=== PATIENT | male | born 1965 | race Caucasian/White ===

== ENCOUNTER 2024-06-27 18:57 | Emergency (ER) | payer BC, SELFPAY ==
--- NOTE | ~2024-06-27 | XR_ITS ---
EXAMINATION: XR HAND, LEFT CLINICAL INFORMATION: Left pinky fracture/dislocation. COMPARISON: None available. TECHNIQUE: PA, lateral, and oblique views of the left hand. FINDINGS: Ulnar and dorsal dislocation of the fifth middle phalanx with respect to the proximal phalanx with an osseous fragment along the ventral aspect of the proximal interphalangeal joint on the lateral view, suspicious for underlying avulsion fracture. There is surrounding soft tissue swelling. 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 Mild multifocal degenerative osteoarthritis of the distal interphalangeal joints. XR/XR hand LT 2V IMPRESSION: Ulnar and dorsal dislocation of the fifth middle phalanx with respect to the proximal phalanx with an osseous fragment along the ventral aspect of the proximal interphalangeal joint, suspicious for underlying avulsion fracture. Electronically signed by: Hyun Noyola MD 06/27/2024 09:30 PM [facility]
--- NOTE | ~2024-06-27 | XR_ITS ---
XR/XR hand LT min 3V IMPRESSION: Relocation of previously noted dislocation at the proximal interphalangeal joint of the fifth digit. Small bony density along the palmar aspect of the proximal interphalangeal joint possibly an avulsion/chip type fracture. Electronically signed by: Ramu Gann MD 06/28/2024 04:09 AM [facility] EXAMINATION: XR HAND, LEFT CLINICAL INFORMATION: Reduction of dislocation proximal interphalangeal joint fifth digit. COMPARISON: None available. TECHNIQUE: PA, lateral, and oblique views of the left hand. FINDINGS: There is relocation of the previously noted dislocation at the proximal interphalangeal joint fifth digit. There is a small bony density along the palmar aspect of the proximal interphalangeal joint fifth digit possibly an avulsion/chip type fracture. No other fracture is seen. The soft tissues are unremarkable.
[2024-06-27 19:03] VITALS: BP 177/89; PULSE 70; RESP 20; TEMP 36.9; O2SAT 99; BMI 29.2
--- NOTE | 2024-06-27 19:21 | ED.GENADULT ---
HPI - General Adult General Chief complaint: Extremity Problem Stated complaint: Manjeet Jimenez Injury 06/27/24 Time Seen by Provider: 06/27/24 23:43 Source: patient Mode of arrival: ambulatory Limitations: no limitations History of Present Illness ED Provider: Dr. Ruth Jones HPI narrative: Patient comes to the emergency room complaining of pain in the 5th finger of the left hand. Patient states that he was walking down the stairs, patient has slipped, tried grabbing himself onto the rail. Patient is slammed his finger against the rail. Patient denies any other injuries. Of note, patient states that he is visiting for [place], going back in a couple of days to [place] Related Data Previous Rx's ?Medication ?Instructions ?Recorded ibuprofen 600 mg tablet 600 mg PO TID PRN fever or pain 06/28/24 #20 tabs Allergies Allergy/AdvReac Type Severity Reaction Status Date / Time Penicillins Allergy Rash Verified 06/27/24 19:05 Review of Systems Review of Systems: Constitutional : No Weight loss, No Fever, No Chills, No Night Sweats, No Fatigue, No Malaise ENT/Mouth : No Hearing loss, No Ear Pain, No Nasal Congestion, No Sinus Pain, No Hoarseness, No sore throat, No Rhinorrhea, No Swallowing Difficulty Eyes: No Eye Pain, No Swelling, No Redness, No Foreign Body, No Discharge, No Vision Changes Cardiovascular : No Chest Pain, No SOB, No Dyspnea on Exertion, No Orthopnea, No Edema, No Palpitations Respiratory : No Cough, No Sputum, No Wheezing, No Smoke Exposure, No Dyspnea Gastrointestinal : No Nausea, No Vomiting, No Diarrhea, No Constipation, No abdominal Pain, No Hematochezia, No Melena Genitourinary : no irregular bleeding, No Dysuria, No Urinary Frequency, No Hematuria, No Urinary Incontinence, No Urgency, No Flank Pain, No Urinary Flow Changes, No Hesitancy Musculoskeletal : Complaining of 5th finger pain, left hand No Myalgias, No Joint Swelling Skin : No Skin Lesions, No rash Neuro : No Weakness, No Numbness, No Paresthesias, No Loss of Consciousness, No Dizziness, No Headache Psych : No Anxiety/Panic, No Depression, No SI/HI/AH/VH, No Social Issues, Heme/Lymph: No Bruising, No Bleeding,No Lymphadenopathy Endocrine : No Polyuria, No Polydipsia, No Temperature Intolerance PMFSH Social History Social History Advance Directives: No Advance Directives Information Provided: No Physical Exam ED Vital Signs: Vital Signs - 24 hr 06/27/24 19:03 06/27/24 23:53 06/28/24 00:52 Temperature 98.4 F 97.7 F 98.2 F Pulse Rate 70 64 69 Respiratory Rate 20 16 16 Blood Pressure 177/89 H 123/82 119/79 Pulse Oximetry 99 98 97 Oxygen Delivery Method Room Air Room Air Room Air 06/28/24 00:59 Temperature 98.2 F Pulse Rate 69 Respiratory Rate 16 Blood Pressure 119/79 Pulse Oximetry 97 Oxygen Delivery Method Room Air BMI result Body Mass Index 29.2 Const Other: Appearance: Alert. Oriented X3. No acute distress. Eyes: Pupils equal, round and reactive to light. ENT: Pharynx normal. Neck: Normal inspection. Neck supple. No lymph nodes noted. No crepitus CVS: Normal heart rate and rhythm. Pulses normal. Normal S1 and S2 Respiratory: No respiratory distress. Breath sounds normal. No Wheezing. No rales Abdomen: Soft and nontender. No rigidity. No distention. Skin: Skin warm and dry. Normal skin color. Normal skin turgor. Extremities: No lower extremity edema. No Lacerations. No Rash. On the left hand, 5th digit, there is a slight deformity, mild ecchymosis. Neuro: Oriented X 3. No motor deficit. No sensory deficit. Moving all extremities. No slurred speech. CN 2 through 12 grossly intact Psych: calm, cooperative, normal affect Course Course Course Narrative: RME: 59-year-old male presents to the ED for left pinky pain. Patient was breaking and fall put his hand the stairs well as his left pinky bent backwards. Physical exam left pinky straight but could not be flecks. Patient is sent for x-ray. Medications Administered Discontinued Medications Generic Name Dose Route Start Last Admin Trade Name Freq PRN Reason Stop Dose Admin Tramadol HCl 50 mg 06/27/24 23:52 06/27/24 23:58 Tramadol Hcl 50 Mg Tablet PO 06/27/24 23:53 50 mg ONCE ONE Administration Medical Decision Making Medical Decision Making [facility] Narrative: My interpretation of x-ray 1.: There is a subluxation in a possible avulsion -I discussed with the patient that we can reduce the finger by using local anesthesia/lidocaine versus popping it/reducing it without any number medication only pain meds. Patient decided to go ahead and reduce it without any other medications. Patient's digit was easily reduced. On the 2nd x-ray, subluxation has been reduced, there is a small avulsion fracture. Patient's fingers were brenda-taped. Patient was given tramadol p.o.. Patient was provided with a printed script, he does not have a pharmacy here in [place]. Patient states that in couple of days he will be flying back to [place]. Patient instructed to follow-up with his primary care physician and orthopedic surgeon Differential Diagnosis Differential Diagnoses: The differential diagnosis associated with the presentation includes (Fingertips location, dislocation, fracture, contusion) Discharge Plan Discharge Clinical Impression: Dislocated finger, Avulsion fracture Patient Disposition: Home, Self-Care Instructions: Finger Dislocation (ED) Additional Instructions: Please follow-up with your primary care physician and with your orthopedic surgeon tomorrow. If you have any worsening or new symptoms, please return to the emergency room or call 911 Prescriptions: New ibuprofen 600 mg tablet 600 mg PO TID PRN (Reason: fever or pain) Qty: 20 0RF Interventions: ED Discharge Assessment Last Done: 06/28/24 00:59 Discharge Date/Time: 06/28/24 01:00 Print Language: [place]i
[2024-06-27 23:53] VITALS: BP 123/82; PULSE 64; RESP 16; TEMP 36.5; O2SAT 98
[2024-06-27] MEDS: traMADoL HCL 50 MG TABLET PO (23:58)
[2024-06-28 00:52] VITALS: BP 119/79; PULSE 69; RESP 16; TEMP 36.8; O2SAT 97
[2024-06-28 00:59] VITALS: BP 119/79; PULSE 69; RESP 16; TEMP 36.8; O2SAT 97
== END 2024-06-28 01:00 | disposition home or self-care (01) ==
PROVIDERS: Emergency Provider Emergency Medicine
DX: S62.627A Displaced fracture of middle phalanx of left little finger, initial encounter for closed fracture (principal); W10.8XXA Fall (on) (from) other stairs and steps, initial encounter; Y93.9 Activity, unspecified; Y92.9 Unspecified place or not applicable; Y99.9 Unspecified external cause status; M79.645 Pain in left finger(s)
CPT/HCPCS: 26770; 73120; 73130; 99284